=== PATIENT | female | born 1985 | race Caucasian/White ===

== ENCOUNTER 2024-02-10 18:32 | Emergency (ER) | payer BC, SELFPAY ==
[2024-02-10 18:33] VITALS: BP 161/92
[2024-02-10 18:48] LABS: % Basophils 0.4 % (0-2); % Eosinophils 0.8 % (0-6); % Immature Granulocytes 0.4 % (0-0.5); % Lymphocytes 21.4 % (20.5-51.1); % Monocytes 5.8 % (1.7-9.3); % Neutrophils 71.2 % (42.2-75.2); Absolute Eosinophils 0.1 10^3/uL (0-0.7); Absolute Lymphocytes 1.8 10^3/uL (1.2-3.4); Absolute Monocytes 0.5 10^3/uL (0.1-0.6); Hematocrit 24.7 % (37.0-47.0); Hemoglobin 7.3 g/dL (12.0-16.0); Mean Corp Hgb Conc. 29.6 g/dL (33.0-37.0); Mean Corpuscular Hgb 21.3 pg (27.0-31.0); Mean Corpuscular Volume 72.2 fL (81.0-99.0); Mean Platelet Volume 9.9 fL (7.4-10.4); Nucleated Red Blood Cells % 0 %; Platelet Count 345 10^3/uL (130-400); Red Blood Cell Count 3.42 10^6/uL (4.20-5.40); White Blood Cell Count 8.4 10^3/uL (4.8-10.8)
[2024-02-10 18:55] LABS: HCG, Serum Qualitative Screen Negative
--- NOTE | 2024-02-10 19:21 | ED.GENMED ---
History of Present Illness
General
Chief Complaint: Abdominal Symptoms
Time Seen by Provider: 02/10/24 19:21
History of Present Illness
History of Present Illness:
HPI: Patient presents with right-sided pain that started approximately 12 hours ago. The symptoms are very similar to when she had a kidney infection in the past. She had some UTI type of symptoms last week but currently does not have any UTI
symptoms. The pain is located near the right flank and right mid axillary line but does not have any anterior abdominal pain. She has had no fevers. Of note she is found to be anemic and states that she has iron deficiency anemia but is not
compliant with continuing iron supplementation.
EXAM:
GENERAL: Well appearing in no distress
HEENT: Moist oral mucosa
CARDIOVASCULAR: No murmurs, normal heart rate, regular rhythm, No chest wall tenderness
PULMONARY: No respiratory distress, breath sounds are clear and equal
ABDOMEN: Soft with no peritoneal signs, no tenderness, there is no significant CVA tenderness on either side, there is minimal tenderness along the right abdominal midaxillary line, there is no tenderness over McBurney's point
NEUROLOGIC: Excellent strength all extremities, no coordination deficits
PSYCHIATRIC: Appropriate mental status, normal insight and judgement
EXTREMITIES: Nontender, no edema, moves all extremities equally
SKIN: No rash, no lesions, but appears slightly pale
TIME OF INITIAL ENCOUNTER: 7:30 PM
NUMBER AND COMPLEXITY OF PROBLEMS ADDRESSED AT THE ENCOUNTER
� Chronic conditions affecting care: Has had colitis, pancreatitis, hemorrhoids, iron deficiency anemia
� Acute Exacerbation and/or Progression of Chronic Illness: This is an acute problem
� Differential Diagnosis includes: Pyelonephritis, musculoskeletal abdominal wall strain, pancreatitis less likely
AMOUNT AND/OR COMPLEXITY OF DATA TO BE REVIEWED AND ANALYZED
� I performed an independent evaluation of and my interpretation is:
EKG:
CT:
X-rays:
Laboratory Studies: White blood cell count is normal at 8.4, hemoglobin is 7.3, hCG negative, chemistries relatively unremarkable, lipase normal increased number of white cells noted. Will start antibiotics.
Other:
� Review of other/old records: I reviewed old records. The last hemoglobin was 9.4 in May 2022. I reviewed her iron studies from just a few weeks ago which showed that the iron was very low and TIBC was high.
� Clinical information was obtained by an independent historian:
� Prescriptions/Medications Considered but not given:
� Further testing considered but not performed: Offered and considered digital rectal examination to evaluate for Hemoccult blood in the stool but she declines�she reports no gross blood or melena
RISK OF COMPLICATIONS AND/OR MORBIDITY OR MORTALITY OF PATIENT MANAGEMENT
� Social determinants of health affecting care: Lives at home
� Discussion with other providers:
� Escalation of care including admission/observation vs risk of discharge considered: Although the patient's hemoglobin is low, she has no symptoms directly related to anemia. She declined rectal examination. She was told that
she has iron deficiency anemia in the past. Will give a dose of IV iron while she is here. test is negative. Increased number of white cells on urinalysis. Will start antibiotics.
Past History
Past History
ED Past Medical History: GERD and Other (colitis, hemorrhoids, pancreatitis)
ED Past Surgical History:
Patient has exhibited threatening behavior?: No
Social History
Tobacco: Former smoker
Alcohol: Occasional
Drug: None
Personal:
Living: with family
Employment: Employed
Family History
Family History: Other (Noncontributory)
Phy Exam
Physical Exam
Physical Exam:
See HPI
Course
Orders/Labs/Results
Orders:
Orders
02/10/24 18:36
Test Result ONCE
02/10/24 18:39
Complete Blood Count/With Diff Urgent
Comprehensive Metabolic Panel Urgent
HCG, Serum Qualitative Screen Urgent
Lipase Urgent
02/10/24 19:31
Ketorolac [Toradol] 15 mg IV NOW STA
02/10/24 19:41
Ferric Gluconate [Ferrlecit] 125 mg 0.9% Sodium Chloride 100 ml [Nss] 100 ml IV NOW
02/10/24 19:51
Urinalysis Reflex To Culture Urgent
Date Specimen was Collected: 02/10/24
Time Specimen was Collected: 19:27
Urine Microscopic Reflex Cult Urgent
Urine Culture Urgent
RAMILA Source: U
Specimen Description:
Date Specimen was Collected: 02/10/24
Time Specimen was Collected: 19:27
02/10/24 21:56
Ciprofloxacin HCl [Cipro] 500 mg PO NOW STA
Abnormal Lab Results
02/10/24 02/10/24
18:39 19:51
RBC 3.42 L 10^6/uL
(4.20-5.40)
Hgb 7.3 L g/dL
(12.0-16.0)
Hct 24.7 L %
(37.0-47.0)
MCV 72.2 L fL
(81.0-99.0)
MCH 21.3 L pg
(27.0-31.0)
MCHC 29.6 L g/dL
(33.0-37.0)
RDW 19.0 H %
(11.5-14.5)
Potassium 3.4 L mmol/L
(3.5-5.1)
Carbon Dioxide 21 L mmol/L
(22-30)
Ur Occult Blood Reflex 4+ A
(Negative)
Leukocyte Esterase Rfl 1+ A
(Negative)
Urine RBC 16-20 A /HPF
(0-2)
Urine WBC (Reflex) 11-15 A /HPF
(0-5)
Urine Bacteria (Reflex) Many A
(Negative)
02/10/24 18:39
02/10/24 18:39
Vital Signs
Initial and Last Documented VS:
Initial Vital Signs
Temp Pulse Resp BP Pulse Ox
98.4 F 103 16 161/92 98
02/10/24 18:33 02/10/24 18:33 02/10/24 18:33 02/10/24 18:33 02/10/24 18:33
Last Documented Vital Signs
Temp Pulse Resp BP Pulse Ox
98.4 F 90 16 136/83 100
02/10/24 18:33 02/10/24 20:00 02/10/24 18:33 02/10/24 21:00 02/10/24 21:30
*Critical Care Note
Total Time (30-74mins, 75-104mins- exclusive of procedures): Not Applicable
ED Attending Note
-
Portions of this chart may have been created with voice recognition software.� Occasional wrong word or��sound alike� substitutions may have occurred due to the inherent limitations of voice recognition software.
Discharge Plan
Departure
Patient Disposition: Home (Routine Discharge)
Date of Disposition: 02/10/24
Time of Disposition: 21:59
Patient with high blood pressure during this ER visit?: Yes
Discharge Problem:
Acute flank pain, Iron deficiency anemia
Instructions: Flank Pain (DC)
Prescriptions:
New
ciprofloxacin HCl [Cipro] 500 mg tablet
500 mg PO BID Qty: 14 0RF
No Action
lansoprazole 15 MG capsule,delayed release(DR/EC)
1 tab PO DAILY
Zofran Odt (Orally Disintegrating):
8 mg PO DIRECTED PRN (Reason: nausea )
levofloxacin 750 mg tablet
750 mg PO DAILY Qty: 9 0RF
Referrals:
Ebonie Martinez MD [Family Provider] -
Activity Restrictions/Additional Instructions:
Since you do have flank pain and an increased number of white cells in your urine, it is possibly could have a urinary tract infection. I am placing you on Cipro. Follow-up with your primary care doctor and return here if worse. Your hemoglobin
level is 7.3 and your recent iron studies show that you are iron deficient. I strongly recommend following up with your doctors regarding further management of iron deficiency anemia. We did give you a dose of IV iron here.
Interventions
Interventions:
*Risk Screen - Suicide Last Done: 02/10/24 18:33
*General Assessment Last Done: 02/10/24 19:24
*Neglect/Abuse Screening Last Done: 02/10/24 18:33
ED- Fall Risk Assessment Last Done: 02/10/24 20:35
*ED COVID-19 Vaccine History Last Done: 02/10/24 19:24
YB-Yerexl-Hpoennmvbq Assessment Last Done: 02/10/24 19:24
Discharge Date and Time
Print Language: CAMEROONIAN
[2024-02-10 19:24] VITALS: BMI 33.9
[2024-02-10 19:46] LABS: ALT (SGPT) 18 U/L (0-35); AST (SGOT) 36 U/L (14-36); Albumin 4.4 g/dl (3.5-5.0); Alkaline Phosphatase 118 U/L (38-126); Blood Urea Nitrogen 12 mg/dl (7-17); Calcium 9.1 mg/dl (8.4-10.2); Carbon Dioxide 21 mmol/L (22-30); Chloride 104 mmol/L (98-107); Estimated Creatinine Clearance 111 ml/min; Glucose 95 mg/dl (70-99); Potassium 3.4 mmol/L (3.5-5.1); Sodium 141 mmol/L (135-145); Total Bilirubin 0.6 mg/dl (0.2-1.3); Total Protein 7.5 g/dl (6.3-8.2); eGFR > 60.00
[2024-02-10] MEDS: TORADOL 15 MG IV (19:46)
[2024-02-10] MEDS: FERRLECIT 110 MG IV (19:54)
[2024-02-10 19:55] LABS: Lipase 80 U/L (23-300)
[2024-02-10 20:00] VITALS: BP 137/87
[2024-02-10 20:09] LABS: Urine Albumin Trace (Neg - Trace); Urine Bilirubin Negative (Negative); Urine Character Clear (Clear); Urine Glucose Negative (Negative); Urine Ketone Negative (Negative); Urine Leukocyte 1+ (Negative); Urine Nitrite Negative (Negative); Urine Occult Blood 4+ (Negative); Urine Specific Gravity 1.015 (<1.030); Urine Urobilinogen Negative (Neg - 1+)
[2024-02-10 20:13] LABS: Urine Color Pink
[2024-02-10 20:19] LABS: Urine Red Blood Cell 16-20 /HPF (0-2)
[2024-02-10 20:20] LABS: Urine Bacteria Many (Negative)
[2024-02-10 21:00] VITALS: BP 136/83
[2024-02-10] MEDS: CIPRO 500 MG PO (21:59)
[2024-02-10 22:00] VITALS: BP 141/89
== END 2024-02-10 22:22 | disposition home or self-care (01) ==
LOC: EMR 18:32
PROVIDERS: Emergency Medicine; EMERGENCY PHYSICIAN Emergency Medicine; FAMILY PHYSICIAN Family Medicine
DX: R10.9 Unspecified abdominal pain (principal); D50.9 Iron deficiency anemia, unspecified; R03.0 Elevated blood-pressure reading, without diagnosis of hypertension; K21.9 Gastro-esophageal reflux disease without esophagitis; K52.9 Noninfective gastroenteritis and colitis, unspecified; Z91.148 Patient's other noncompliance with medication regimen for other reason; Z87.19 Personal history of other diseases of the digestive system; Z88.1 Allergy status to other antibiotic agents; Z91.040 Latex allergy status
CPT/HCPCS: 99284; 96374; 96375; 80053; 81003; 81015; 83690; 84703; 85025; 87086; J2916